=== PATIENT | male | born 1970 | race Caucasian/White ===

== ENCOUNTER 2017-05-21 16:04 | Observation (INO) | payer BC ==
[~2017-05-21] VITALS: Ht 175.3 cm; Wt 121.1 kg
[~2017-05-21 16:04] MED LIST: ALEVE220 MG; CADUET 10 MG-101 TAB PO
[2017-05-21 16:11] VITALS: BP 148/108
[2017-05-21] MEDS ORDERED: HCTZ/LISINOPRIL1 TA3 PO (16:13)
--- NOTE | 2017-05-21 16:19 | Emergency Room Report ---
History of Present Illness Time Seen by MD Real Presenting Problem in Triage Pt arrived:Walked Presenting Problem:PT C/O RIGHT FLANK PAIN THAT STARTED 3 DAYS AGO. ALSO C/O PAIN AND BURNING WITH URINATION. 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 N Clinical Suspician of Infection? N Mental Status: 1 - Regular (Normal Baseline) Sepsis Risk:Low Sepsis Risk Have you (or family members/close friends) recently traveled outside the [place]? N If Yes, where/when: Have you had exposure to infectious disease within the past month? N TB? Other? Specify: Source patient, RN notes reviewed Exam Limitations no limitations Comment Right flank pain for the past 3 days and dysuria and has a history of kidney stones. and this feels like those. Cardiac Chest Pain Chest pain indicative of cardiac No ALLERGIES Coded Allergies: No Known Allergies (05/21/17) Home Medications Reported Medications LISINOPRIL/HYDROCHLOROTHIAZIDE (Lisinopril-Hctz 20-12.5 MG Tab) 1 TAB PO DAILY #30 AMLODIPINE/ATORVASTATIN (Caduet 10 MG-10 MG Tablet) 1 TAB PO DAILY AMLODIPINE/ATORVASTATIN (Caduet 10 MG-10 MG Tablet) 1 TAB PO DAILY History Medical History General CAD? No Angina: No [place]: No Hypertension? Yes Hyperlipidemia? Yes CHF? No DVT? No PE? No COPD? No Asthma? No Anemia? No GERD? No Gastric ulcers? No GI Bleed? No Hernia? No Thyroid Problems? No Hypothyroidism? No CVA? No Seizures? No Diabetes? No Renal Insuffiency? No End Stage Renal Disease? No UTI? No Stones? Yes BPH? No GB Disease: No Nephritic Syndrome? No Asplenia? No Hepatitis? No Sickle Cell Disease? No Arthritis? No Migraines? No Cataracts? No Glaucoma? No MRSA? No HIV? No TB? No Anxiety? No Depression? No Cancer? No More? No Immunization Hx DT/Tetanus 1-4 YRS Surgical Hx Previous Surgery?Y LEFT HAND STENTS (KIDNEY) CYSTO, RIGHT ESWL 04/23/12 Family History Family Hx Hypertension Yes Hyperlipidemia Yes Social History Smoking Hx Smoker: Never Smoker Tobacco: No Alcohol Alcohol: No Review of Systems All Other Systems Reviewed and Negative Constitutional see HPI Gastrointestinal see HPI Genitourinary see HPI. Physical Exam Vital Signs Vital Signs Date Time Temp Pulse Resp B/P Pulse O2 O2 Flow FiO2 Ox Delivery Rate 05/21 1850 98.0 61 16 133/84 98 05/21 1757 98.0 67 16 142/82 98 05/21 1712 98.6 68 16 141/81 97 05/21 1622 16 05/21 1611 98.3 97 16 148/108 98 General Appearance normal appearance, WD/WN, no apparent distress Respiratory Status No: respiratory distress. Lung Sounds bilateral: normal breath sounds. Cardiovascular normal exam, regular rate/rhythm Gastrointestinal tenderness (left flank) Neurologic alert, document reviewer II-XII nml as tested Medical Decision Making LABS/Meds/Orders Pt receiving controlled substance in ED? No Results/Orders Laboratory Tests 05/21/17 1821: Urine Color FRANCIA, Urine Appearance TURBID, Urine pH 5.5, Ur Specific [place] >= 1.030, Urine Protein 2+ H, Urine Ketones NEGATIVE, Urine Blood 3+ H, Urine Nitrate NEGATIVE, Urine Bilirubin NEGATIVE, Urine Urobilinogen 0.2, Ur Leukocyte Esterase NEGATIVE, Urine RBC TNTC, Urine WBC 3-5, Ur Squamous Epith Cells OCC, Amorphous Sediment TRACE, Urine Glucose NEGATIVE 05/21/17 1620: Sodium 138, Potassium 4.5, Chloride 101, Carbon Dioxide 28, BUN 24 H, Creatinine 1.6 H, Estimated Creat Clear 99, Estimated GFR (MDRD) 47, Glucose 127 H, Calcium 8.9, Total Bilirubin 0.8, AST 23, ALT 33, Alkaline Phosphatase 153 H, Total Protein 7.7, Albumin 3.8, Globulin 3.9 H, Albumin/Globulin Ratio 1.0 L, WBC 14.9 H, RBC 5.44, Hgb 16.7, Hct 48.7, MCV 89.5, RDW 12.9, Plt Count 257, MPV 7.5, Gran % 82.5 H, Gran # 12.3 H, Lymphocytes % 11.5, Monocytes % 4.5, Eosinophils % 1.1, Basophils % 0.5, Lymphocytes # 1.7, Monocytes # 0.7, Eosinophils # 0.2, Basophils # 0.1, PUBS MCHC 34.3, MCH 30.7 Current Medication Orders Sig/Aleksandr Start time Last Medication Dose Route Stop Time Status Admin Ceftriaxone Sodium 1 GM ONCE ONE 05/21 1900 AC Sodium Chloride 50 ML IV 05/21 1929 Ketorolac 30 MG ONCE ONE 05/21 1630 DC 05/21 Tromethamine IV 05/21 1631 1622 Ondansetron HCl 4 MG ONCE ONE 05/21 1630 DC 05/21 IV 05/21 1631 1622 Sodium Chloride 10 ML PRN PRN 05/21 1630 AC IV 05/22 1617 Sodium Chloride 1,000 ML .Q1H1M 05/21 1630 DC 05/21 IV 05/21 1730 1622 Sodium Chloride 10 ML PRN PRN 05/21 1630 AC IV 05/22 1617 Sodium Chloride 1,000 ML .STK-MED ONE 05/21 1616 DC IV Ketorolac 0 .STK-MED ONE 05/21 1615 DC Tromethamine .ROUTE Ondansetron HCl 0 .STK-MED ONE 05/21 1615 DC .ROUTE Orders Procedure Date/time Status DIET-NOTHING BY MOUTH 05/21 D Active Decision to admit 05/[address] ABD/PELVIS REQ 05/21 161 Complete IV SALINE LOCK 05/21 1618 Active URINALYSIS/COMPLETE 05/21 161 Complete CBC WITH AUTO DIFF 05/21 161 Complete CHEM 12 PROFILE 05/21 1618 Complete Departure Departure Time of Disposition 1859 Disposition Still a Patient Clinical Impression Primary Impression: Acute kidney injury Secondary Impressions: Ureteral stone with hydronephrosis UTI (urinary tract infection) Qualifiers: Urinary tract infection type: acute cystitis Hematuria presence: with hematuria Qualified Code: N30.01 - Acute cystitis with hematuria Condition STABLE Referrals Linsey Kurtz MD (Family) Additional Instructions aDMITTED BY Dr. Kurtz to Acute care for IVF's, antibiotics Discharge Counseling Counseled pt/family regarding diagnosis, test results, medications/RX, follow up needs ED Critical Care Critical Care No If Critical Care minutes are documented, the time involved in the performance of seperately reportable procedures was not counted toward critical care time documented. I directly delivered medical care to this critically ill and/or injured patient. Timely evaluation and treatment was necessary to address the significant organ system(s) dysfunction present in this patient. at 1904
[2017-05-21 16:39] LABS: HEMOGLOBIN 16.7 g/dL (14.1-18.0); LYMPH # 1.7 K/mm3 (0.7-4.5); LYMPH % 11.5 % (10-50)
--- NOTE | 2017-05-21 17:58 | RADIOLOGY REPORT PS360 ---
CT ABD PELVIS W/O CONTRAST HISTORY: FLANK PAIN, HX OF KIDNEY STONES Patient Age: 46 years: Male Ordering Physician: Ignacio Martinez MD TECHNIQUE: Helical CT scanning performed the abdomen or pelvis. No oral contrast no IV utilized. Sagittal and coronal reconstructions on CT workstation. COMPARISON :CT abdomen pelvis June 2009. FINDINGS Obstructive uropathy on the RIGHT due to a right pelvic ureter stone... Mild hydronephrosis and stranding about the right kidney related to such. 3.8 mm transverse X nearly 5.8 mm AP, x 6 mm length ureteral calculus is seen at the right pelvic ureter just below where it crosses the iliac vessels. This Calculus projected over mid right sacrum on risk consulting treasury director view. There is moderate dilatation of the right ureter above this with mild hydronephrosis. Scattered nonobstructive punctate calculi are seen elsewhere throughout the kidneys bilaterally. Right kidney 4.4 x 5 mm calculus at lower pole right kidney containing less than 1.5 mm developing calculus upper pole question is seen. Left kidney: there are scattered punctate calculi. The largest at lower pole measuring up to nearly 10 mm maximally x 5 mm. Nonobstructive. It may actually be 2 adjacent calculi smaller 5.5 mm calculus at upper pole noted. Rather linear in character. Nonobstructive. Other smaller calculi are seen elsewhere measuring less than 4 mm at upper pole. . The urinary bladder is unremarkable. Modest prostate. Small seminal vesicles. No pelvic mass nor adenopathy. Appendix is normal. Terminal ileum unremarkable. Small bowel normal caliber. [id number] stool throughout colon. No bowel dilatation or obstruction Lung bases. No active disease. Mild cardiomegaly. Small Calcified granuloma at the posterior lung bases bilaterally. Liver unremarkable. Gallbladder unremarkable. Pancreas unremarkable. Left adrenal. Low-density fat density nodule measuring up to 20 mm x 21 mm. Low-density supports over 95% likelihood benign nonfunctioning adenoma. However since enlarged since 2007 it does warrant either ongoing follow-up or postcontrast CT adrenal protocol.. Right adrenal unremarkable. No retroperitoneal nor mesenteric adenopathy. Osseous structures unremarkable. No significant osseous findings. \ IMPRESSION... 1. Obstructive uropathy on the right. Mild right hydronephrosis. Moderate dilatation ureter down to a right mid right pelvic ureteral calculus.- Which measures measures 3.8 mm transverse X5.8 mm mm AP X 6 mm length. 2. Numerous nonobstructive calculi of otherwise seen in both kidneys as described above. These are more evident than 2008 CT 3. Left adrenal nodule now measuring 2.2 cm has enlarged since previous study remains. It remains fat density, low density which strongly supports is benign character..-. But would benefit from follow-up or possibly CT with contrast adrenal protocol if continued to enlarge to further supporting benign character . Would encourage baseline chest film to correlate at some point near future 4. Borderline/mild cardiomegaly
[2017-05-21 18:30] LABS: URINE BLOOD 3+ (NEG)
[2017-05-21 18:40] LABS: URINE BILIRUBIN - DIPSTICK NEGATIVE (NEG); URINE SQUAMOUS CELLS OCC #/hpf (OCC)
[2017-05-21 21:35] VITALS: BP 151/87
--- NOTE | 2017-05-21 21:52 | HISTORY AND PHYSICAL REPORT ---
History and Physical ([facility]) Date of admission: 05/21/17 Chief complaint: RIGHT flank pain, abdominal pain, history of kidney stones History: History of Present Illness: This 46-year-old white male has had multiple episodes of kidney stones in the past. He presents to the emergency room today with a 3 day history of discomfort in the RIGHT flank area. He was admitted for apparent RIGHT renal stone. Reviewing the record he has visits dating back to 2007 at [facility] and being cared for by Dr. Josefa Lora. He has had lithotripsy before. In the record is 07/01/2008, 2011, 12/11/2012, 08/07/2014. All of these visits are related to renal stones. He also has hypertension and is treated with lisinopril/hydrochlorothiazide. He also takes atorvastatin for hyperlipidemia which is strong in his family.. Past Medical History: Medical History: CAD? No Angina: No [place]: No Hypertension? Yes Hyperlipidemia? Yes CHF? No DVT? No PE? No COPD? No Asthma? No Anemia? No GERD? No Gastric ulcers? No GI Bleed? No Hernia? No Thyroid Problems? No Hypothyroidism? No CVA? No Seizures? No Diabetes? No Renal Insuffiency? No UTI? No Stones? Yes BPH? No GB Disease: No Nephritic Syndrome? No Asplenia? No Hepatitis? No Sickle Cell Disease? No Arthritis? No Migraines? No Cataracts? No Glaucoma? No MRSA? No HIV? No TB? No Anxiety? No Depression? No Cancer? No More? No Surgical history: Previous Surgery?Y 1. LEFT HAND surgery x2 for a fracture 1993,1996 2. Right Achilles tendon tear and repair 2014 3. Renal stones, stents, lithotripsy 2011. Medications: Reported Medications LISINOPRIL/HYDROCHLOROTHIAZIDE (Lisinopril-Hctz 20-12.5 MG Tab) 1 TAB PO DAILY #30 AMLODIPINE/ATORVASTATIN (Caduet 10 MG-10 MG Tablet) 1 TAB PO DAILY AMLODIPINE/ATORVASTATIN (Caduet 10 MG-10 MG Tablet) 1 TAB PO DAILY Allergies: Coded Allergies: No Known Allergies (05/21/17) Family History: Family history: Postive for: CAD, HTN, hyperlipidemia. Additional family history: His father has hypertension and hyperlipidemia and coronary artery disease. His father's had coronary bypass. His mother is living and is in good health. He has a sister who has had renal stones. Biologic mother may have had renal stones as well. Social History: Smoking Hx Tobacco: No Smoker: Never Smoker Type: N/A Packs/day: N/A Are you exposed to second hand No Alcohol: Alcohol: No Hx of Drug Use: Drug Use? No Patien't marital status is: Patient's support system is: good Review of Systems: Patient unresponsive? No Constitutional No: chills, malaise, weak, recent weight loss. ENT No: ear ache, hearing loss, mouth pain, tongue swelling. Cardiovascular No: [place], PND, chest pain, edema, orthopnea, palpitations. Respiratory No: shortness of air, wheezing. GI Positive for: abdominal pain, nausea, vomitting. No: constipation, diarrhea, hematemeis. (male) Positive for: flank pain, testicular pain. No: hematuria. Skin No: abrasions, bruising, rash. Neurological No: change in LOC, bladder dysfunction, bowel dysfunction, confusion, dizziness, gait problem, headache, seizure, syncope, vision change, weakness. Immune/allergy No: allergy, hives, itching. Eyes No: blurry vision, vision loss, swelling. Musculoskeletal No: joint pain, joint swelling. Endocrine No: cold intolerance. Psychiatric No: anxious, depression, change in mental status. Physical Exam: Vital signs: 1ST Vital Signs Result Date Time Pulse Ox 98 05/21 1611 B/P 148/108 05/21 161 Temp 98.3 05/21 1611 Pulse 97 05/21 1611 Resp 16 05/21 1611 Exam: General appearance: normal appearance, alert, no acute distress Eyes: anicteric, conjunctiva clear, PERRLA ENT: normal exam, mucous membranes moist Neck: normal inspection Cardiovascular: no ectopics, normal sinus rhythm Respiratory: aerating well, clear to auscultation ABD: soft, no tenderness, obese Genitourinary: normal voiding & quantity, circumcised, testes WNL, no lesions , no hernias Extremities: normal exam, no peripheral edema Musculoskeletal: normal exam Skin: dry, intact Neuro: alert, no deficit, oriented, speech clear Lab data: Labs: Laboratory Tests 05/21/17 1821: Urine Color FRANCIA, Urine Appearance TURBID, Urine pH 5.5, Ur Specific [place] >= 1.030, Urine Protein 2+ H, Urine Ketones NEGATIVE, Urine Blood 3+ H, Urine Nitrate NEGATIVE, Urine Bilirubin NEGATIVE, Urine Urobilinogen 0.2, Ur Leukocyte Esterase NEGATIVE, Urine RBC TNTC, Urine WBC 3-5, Ur Squamous Epith Cells OCC, Amorphous Sediment TRACE, Urine Glucose NEGATIVE 05/21/17 1620: Sodium 138, Potassium 4.5, Chloride 101, Carbon Dioxide 28, BUN 24 H, Creatinine 1.6 H, Estimated Creat Clear 99, Estimated GFR (MDRD) 47, Glucose 127 H, Calcium 8.9, Total Bilirubin 0.8, AST 23, ALT 33, Alkaline Phosphatase 153 H, Total Protein 7.7, Albumin 3.8, Globulin 3.9 H, Albumin/Globulin Ratio 1.0 L, WBC 14.9 H, RBC 5.44, Hgb 16.7, Hct 48.7, MCV 89.5, RDW 12.9, Plt Count 257, MPV 7.5, Gran % 82.5 H, Gran # 12.3 H, Lymphocytes % 11.5, Monocytes % 4.5, Eosinophils % 1.1, Basophils % 0.5, Lymphocytes # 1.7, Monocytes # 0.7, Eosinophils # 0.2, Basophils # 0.1, PUBS MCHC 34.3, MCH 30.7 Radiology results: Results: right renal stone. See CT Diagnosis(es): 1. Ureteral stone 2. Hypertension 3. Hyperlipidemia Plan: See orders. Hyoscyamine and Flomax. Fluids. at 3959
[2017-05-21] MEDS ORDERED: LIPITOR40 MG PO (23:32)
[2017-05-22 04:18] VITALS: BP 112/67
[2017-05-22 06:56] LABS: LYMPH % 24.1 % (10-50)
--- NOTE | 2017-05-22 07:26 | PHARMACY CLINIC NOTE ---
Patient Demographics Patient Demographics Admission date: 05/21/17 Date: 05/22/17 Time: 0725 Allergies Coded Allergies: No Known Allergies (05/21/17) HEIGHT- FT: 5 IN: 9.00 K.111 VTE General Information Labs: Laboratory Tests 05/22 05/21 0635 1620 Hematology Hgb (14.1 - 18.0 g/dL) 14.0 L 16.7 Hct (42.0 - 52.0 %) 41.4 L 48.7 Plt Count (142 - 424 K/mm3) 192 257 Disclaimer The following section includes nursing documentation that has been pulled in for pharmacy review. Patient's VTE score: 2 Patient's VTE Risk: VERY LOW RISK Clinical trial participant? No VTE prophylaxis [id number] VTE prophylaxis ordered? Yes Type of prophylaxis/treatment: THAIS at 0725
[2017-05-22 08:30] VITALS: BP 124/67
--- NOTE | 2017-05-22 09:14 | ACUTE CARE PROGRESS NOTE (QUA) ---
Progress Notes Subjective Date 05/22/17 Time 0855 Note Pain is better this AM; unable to sleep due to IV pump beeping; has voided; no stools; nausea is better; retained Clear liquids; denies CP and SOB Objective Findings Laboratory Tests 05/22/17 0635: Sodium 141, Potassium 4.1, Chloride 107, Carbon Dioxide 32, BUN 24 H, Creatinine 1.4 H, Estimated Creat Clear 112, Estimated GFR (MDRD) 54, Glucose 99, Calcium 7.7 L, WBC 8.4, RBC 4.55 L, Hgb 14.0 L, Hct 41.4 L, MCV 90.9, RDW 13.0, Plt Count 192, MPV 7.8, Gran % 67.3, Gran # 5.6, Lymphocytes % 24.1, Monocytes % 5.5, Eosinophils % 2.5, Basophils % 0.6, Lymphocytes # 2.0, Monocytes # 0.5, Eosinophils # 0.2, Basophils # 0.1, PUBS MCHC 33.8, MCH 30.7 05/21/17 1821: Urine Color FRANCIA, Urine Appearance TURBID, Urine pH 5.5, Ur Specific [place] >= 1.030, Urine Protein 2+ H, Urine Ketones NEGATIVE, Urine Blood 3+ H, Urine Nitrate NEGATIVE, Urine Bilirubin NEGATIVE, Urine Urobilinogen 0.2, Ur Leukocyte Esterase NEGATIVE, Urine RBC TNTC, Urine WBC 3-5, Ur Squamous Epith Cells OCC, Amorphous Sediment TRACE, Urine Glucose NEGATIVE 05/21/17 1620: Sodium 138, Potassium 4.5, Chloride 101, Carbon Dioxide 28, BUN 24 H, Creatinine 1.6 H, Estimated Creat Clear 99, Estimated GFR (MDRD) 47, Glucose 127 H, Calcium 8.9, Total Bilirubin 0.8, AST 23, ALT 33, Alkaline Phosphatase 153 H, Total Protein 7.7, Albumin 3.8, Globulin 3.9 H, Albumin/Globulin Ratio 1.0 L, WBC 14.9 H, RBC 5.44, Hgb 16.7, Hct 48.7, MCV 89.5, RDW 12.9, Plt Count 257, MPV 7.5, Gran % 82.5 H, Gran # 12.3 H, Lymphocytes % 11.5, Monocytes % 4.5, Eosinophils % 1.1, Basophils % 0.5, Lymphocytes # 1.7, Monocytes # 0.7, Eosinophils # 0.2, Basophils # 0.1, PUBS MCHC 34.3, MCH 30.7 Vital Signs Date Time Temp Pulse Resp B/P Pulse O2 O2 Flow FiO2 Ox Delivery Rate 05/22 0418 97.5 66 16 112/67 99 ROOM AIR 05/21 2213 16 05/21 2135 75 05/21 213 97.5 75 20 151/87 05/21 2135 97 ROOM AIR 05/21 2135 97.5 75 20 151/87 97 ROOM AIR 05/21 2110 98.0 76 18 155/100 100 05/21 2055 78 16 142/86 98 05/21 2005 98.0 71 16 110/86 94 05/21 1929 98.0 73 16 144/86 94 05/21 1850 98.0 61 16 133/84 98 05/21 1757 98.0 67 16 142/82 98 05/21 1712 98.6 68 16 141/81 97 05/21 1622 16 05/21 1611 98.3 97 16 148/108 98 Current Medications Amlodipine Besylate 10 MG DAILY PO Lisinopril/HCTZ 1 TAB DAILY PO Tamsulosin HCl 0.4 MG QHS PO Hydromorphone HCl 1 MG Q4HP PRN IV Hyoscyamine Sulfate 0.125 MG QIDP PRN PO Nicotine 21 MG DAILYP PRN TD Promethazine HCl 25 MG Q4HP PRN IV Sodium Chloride 1,000 ML .Q4H IV Sodium Chloride 25 ML PRN PRN IV Ceftriaxone Sodium 0 .STK-MED ONE IV (DC) Sodium Chloride 50 ML .STK-MED ONE IV (DC) Ceftriaxone Sodium 1 GM ONCE ONE IV (DC) Sodium Chloride 50 ML Ketorolac Tromethamine 30 MG ONCE ONE IV (DC) Ondansetron HCl 4 MG ONCE ONE IV (DC) Sodium Chloride 10 ML PRN PRN IV Sodium Chloride 1,000 ML .Q1H1M IV (DC) Sodium Chloride 10 ML PRN PRN IV Sodium Chloride 1,000 ML .STK-MED ONE IV (DC) Ketorolac Tromethamine 0 .STK-MED ONE .ROUTE (DC) Ondansetron HCl 0 .STK-MED ONE .ROUTE (DC) 05/21 1500 05/21 2300 05/22 0700 Intake Total 3639 Output Total 350 Balance 3289 Intake, IV 3639 Output, Urine 350 Patient 267 lb Weight Last VS-Temp:97.5 B/P:112/67 Pulse:66 Resp:16 SaO2:99 ROOM AIR Last weight lbs:267 oz:0 K.111 Method:Bed Scales CT of abdomen and pelvis 05/21/17 IMPRESSION... 1. Obstructive uropathy on the right. Mild right hydronephrosis. Moderate dilatation ureter down to a right mid right pelvic ureteral calculus.- Which measures measures 3.8 mm transverse X5.8 mm mm AP X 6 mm length. 2. Numerous nonobstructive calculi of otherwise seen in both kidneys as described above. These are more evident than 2008 CT 3. Left adrenal nodule now measuring 2.2 cm has enlarged since previous study remains. It remains fat density, low density which strongly supports is benign character..-. But would benefit from follow-up or possibly CT with contrast adrenal protocol if continued to enlarge to further supporting benign character . Would encourage baseline chest film to correlate at some point near future 4. Borderline/mild cardiomegaly Exam General appearance: alert, no acute distress, talking with family at bedside Cardiovascular: regular rate & rhythm Respiratory: clear to auscultation (bilat anterior and posterior) ABD: non-distended, soft, bowel sounds present, obese, tenderness (suprapubic ) Assessment/Plan Problem List 1. Ureteral stone 2. Hypertension 3. Hyperlipidemia Patient condition Stable Plan: continue current care This inpt stay is expected to cross 2 MNs from start of care Yes at 0914
[2017-05-22 09:18] VITALS: BP 112/67
--- NOTE | 2017-05-22 11:40 | RADIOLOGY REPORT PS360 ---
KUB (SINGLE VIEW) HISTORY: right renal stone ORDERING PHYSICIAN: Linsey Kurtz MD PATIENT AGE: 46 years COMPARISON: CT scan of 05/21/2017 FINDINGS: There is bilateral nephrolithiasis with stones measuring up to 4 mm on the right and 5 mm on the left. There is a persistent 4 mm calcific density overlying the mid sacrum on the right probably related to a ureteral stone as seen on the CT scan. This was in a similar appearance on the CT scan. No other significant anomalies. IMPRESSION: Bilateral nephrolithiasis. 4 mm right mid to distal ureteral stone
[2017-05-22 16:30] VITALS: BP 128/79
[2017-05-22] MEDS ORDERED: HYOSCYAMINE0.125 M2 PO (17:27)
[2017-05-22] MEDS ORDERED: FLOMAX0.4 MG PO (17:27)
[2017-05-22] MEDS ORDERED: LORCET PLUS1 TAB PO (17:33)
[2017-05-22 17:50] VITALS: BP 128/79
--- NOTE | 2017-05-25 18:57 | DISCHARGE SUMMARY STANDARD ---
Discharge Summary (FCA2) Date of admission: 05/21/17 Date of discharge: 05/22/17 Problem List: 1. Ureteral stone 2. Hypertension 3. Hyperlipidemia History of present illness: History of Present Illness: This 46-year-old white male with history of multiple episodes of kidney stones in the past. He presented to the emergency room with a 3 day history of discomfort in the RIGHT flank area. He was admitted for apparent RIGHT renal stone. Reviewing the record he was noted to have visits dating back to 2007 at [facility] and was cared for by Dr. Wong and Dr. Lora. He had lithotripsy before. In the record indicated visits 07/01/2008, 2011, 2012, 08/07/2014. All of these visits were related to renal stones. He also was noted to have hypertension being treated with lisinopril/hydrochlorothiazide and treated with atorvastatin for hyperlipidemia. Exam on admission: Vital signs: 1ST Vital Signs Result Date Time Pulse Ox 98 05/21 1611 B/P 148/108 05/21 161 Temp 98.3 05/21 161 Pulse 97 05/21 1611 Resp 16 05/21 1611 Exam: General appearance: normal appearance, alert, no acute distress Eyes: anicteric, conjunctiva clear, PERRLA ENT: normal exam, mucous membranes moist Neck: normal inspection Cardiovascular: no ectopics, normal sinus rhythm Respiratory: aerating well, clear to auscultation ABD: soft, no tenderness, obese Genitourinary: normal voiding & quantity, circumcised, testes WNL, no lesions , no hernias Extremities: normal exam, no peripheral edema Musculoskeletal: normal exam Skin: dry, intact Neuro: alert, no deficit, oriented, speech clear Hospital Course: Patient was started on IVF and ABX. Pain and nausea improved with meds. By the AM of 05/22/17 he was comfortable enough to be discharged home. He was to FU with Dr. Lora the following day. Laboratory data this visit: 05/21/17 1821: Urine Color FRANCIA, Urine Appearance TURBID, Urine pH 5.5, Ur Specific [place] >= 1.030, Urine Protein 2+ H, Urine Ketones NEGATIVE, Urine Blood 3+ H, Urine Nitrate NEGATIVE, Urine Bilirubin NEGATIVE, Urine Urobilinogen 0.2, Ur Leukocyte Esterase NEGATIVE, Urine RBC TNTC, Urine WBC 3-5, Ur Squamous Epith Cells OCC, Amorphous Sediment TRACE, Urine Glucose NEGATIVE 05/21/17 1620: Sodium 138, Potassium 4.5, Chloride 101, Carbon Dioxide 28, BUN 24 H, Creatinine 1.6 H, Estimated Creat Clear 99, Estimated GFR (MDRD) 47, Glucose 127 H, Calcium 8.9, Total Bilirubin 0.8, AST 23, ALT 33, Alkaline Phosphatase 153 H, Total Protein 7.7, Albumin 3.8, Globulin 3.9 H, Albumin/Globulin Ratio 1.0 L, WBC 14.9 H, RBC 5.44, Hgb 16.7, Hct 48.7, MCV 89.5, RDW 12.9, Plt Count 257, MPV 7.5, Gran % 82.5 H, Gran # 12.3 H, Lymphocytes % 11.5, Monocytes % 4.5, Eosinophils % 1.1, Basophils % 0.5, Lymphocytes # 1.7, Monocytes # 0.7, Eosinophils # 0.2, Basophils # 0.1, PUBS MCHC 34.3, MCH 30.7 Imagin05/21/17 CT of abdomen/pelvis IMPRESSION... 1. Obstructive uropathy on the right. Mild right hydronephrosis. Moderate dilatation ureter down to a right mid right pelvic ureteral calculus.- Which measures measures 3.8 mm transverse X5.8 mm mm AP X 6 mm length. 2. Numerous nonobstructive calculi of otherwise seen in both kidneys as described above. These are more evident than [address] CT 3. Left adrenal nodule now measuring 2.2 cm has enlarged since previous study remains. It remains fat density, low density which strongly supports is benign character..-. But would benefit from follow-up or possibly CT with contrast adrenal protocol if continued to enlarge to further supporting benign character . Would encourage baseline chest film to correlate at some point near future 4. Borderline/mild cardiomegaly 05/22/17 KUB IMPRESSION: Bilateral nephrolithiasis. 4 mm right mid to distal ureteral stone Discharge medications: Continue taking these medications: LISINOPRIL/HYDROCHLOROTHIAZIDE (Lisinopril-Hctz 20-12.5 MG Tab) 1 EACH TABLET 1 TABLET ORAL DAILY Qty = 30 Atorvastatin Calcium (Atorvastatin) 40 MG TABLET 40 MILLIGRAM ORAL DAILY Start taking the following new medications: TAMSULOSIN HCL (Flomax) 0.4 MG CAP.ER.24H 0.4 MILLIGRAM ORAL AT BEDTIME NIGHTLY Qty = 20 Refills = 1 Hyoscyamine Sulfate (Hyoscyamine Sulfate) 0.125 MG TABLET 0.125 MILLIGRAM ORAL FOUR TIMES A DAY Qty = 40 Refills = 2 HYDROCODONE/ACETAMINOPHEN (Lorcet Plus 7.5-325 MG Tablet) 1 EACH TABLET 1 TABLET ORAL FOUR TIMES A DAY NEEDED as needed for renal stones Qty = 20 No Refills Disposition: Discharged to home in stable and satisfactory condition. Meds as per reconciliation sheet. To See Dr Lora 05/23/17. Activity was to be limited. Regular diet with good fluid intake at 185
--- OUTSIDE RECORDS SUMMARY | 2017-07-05 02:05 | External Medical Summary Rpt ---
Author Author GABE Address Unknown Phone [email or web address] Purpose Continuity of Care Document - through 2016 Problems Code Diagnosis DOS Provider Status N13.2 HYDRONEPHRO SIS WITH RENAL AND URETERAL CALCULOUS OBSTRUCTION N17.9 ACUTE KIDNEY FAILURE, UNSPECIFIED N39.0 URINARY TRACT INFECTION, SITE NOT SPECIFIED
--- OUTSIDE RECORDS SUMMARY | 2017-07-05 02:05 | External Medical Summary Rpt ---
Author Author GABE Address Unknown Phone [email or web address] Purpose Continuity of Care Document - through 2016 Problems Code Diagnosis DOS Provider Status N13.2 HYDRONEPHRO SIS WITH RENAL AND URETERAL CALCULOUS OBSTRUCTION N17.9 ACUTE KIDNEY FAILURE, UNSPECIFIED N39.0 URINARY TRACT INFECTION, SITE NOT SPECIFIED
--- OUTSIDE RECORDS SUMMARY | 2017-07-05 02:06 | External Medical Summary Rpt ---
Demographics Preferred Language Libyan Marital Status Unknown Religion Affiliation Unknown Race Unknown Ethnic Group Unknown Author Author GABE Address Unknown Phone Immunization Unable to retrieve immunization data due to connection failure with Immunization Registry. Please try again later.
--- OUTSIDE RECORDS SUMMARY | 2017-07-05 02:06 | External Medical Summary Rpt ---
Demographics Preferred Language Zimbabwean Marital Status Unknown Hoahaoism Affiliation Unknown Race Unknown Ethnic Group Unknown Author Author GABE Address Unknown Phone Immunization Unable to retrieve immunization data due to connection failure with Immunization Registry. Please try again later.
--- OUTSIDE RECORDS SUMMARY | 2017-07-05 02:06 | External Medical Summary Rpt ---
Author Author [employer] Organization [employer] Address Unknown Phone Unavailable Purpose Continuity of Care Document - through 2016
--- OUTSIDE RECORDS SUMMARY | 2017-07-05 03:27 | External Medical Summary Rpt ---
Demographics Preferred Language Salvadorean Marital Status Unknown Voodoo Affiliation Unknown Race Unknown Ethnic Group Unknown Author GABE Bliss Address Unknown Phone Immunization No patient found.
--- OUTSIDE RECORDS SUMMARY | 2017-07-05 03:27 | External Medical Summary Rpt ---
Demographics Preferred Language Eritrean Marital Status Unknown Zoroastrianism Affiliation Unknown Race Unknown Ethnic Group Unknown Author GABE Bliss Address Unknown Phone Immunization No patient found.
== END 2017-05-22 18:10 | disposition home or self-care (01) ==
LOC: ER 16:04 → 2ND 19:06 → ER 19:06 → 2ND 21:12
PROVIDERS: General Practice
DX: N13.2 Hydronephrosis with renal and ureteral calculous obstruction (principal); Z87.442 Personal history of urinary calculi
CPT/HCPCS: G0378; J2405